=== PATIENT | male | born 1990 | race Caucasian/White ===

== ENCOUNTER 2021-06-01 12:23 | Emergency (ER) | payer SELFPAY ==
[~2021-06-01] VITALS: Ht 172.7 cm; Wt 63.0 kg
[2021-06-01] MEDS ORDERED: IOHEXOL 300 MG/ML 75 ML VIAL. ONE (13:26)
[2021-06-01] MEDS ORDERED: VANCOMYCIN PER PHARMACY MC PRN (13:30)
[2021-06-01] MEDS ORDERED: IV NORMAL SALINE 1,000ML 1,000 ML IV ONE (13:30)
[2021-06-01] MEDS ORDERED: IOHEXOL 300 MG/ML 75 ML VIAL. IV ONE (13:30)
[2021-06-01] MEDS ORDERED: PIP/TAZO PER PHARMACY MC PRN (13:30)
[2021-06-01] MEDS ORDERED: KETOROLAC 15 MG/ML VIAL. IVP ONE (13:30)
[2021-06-01 13:44] LABS: BASO # 0.3 x10^3/uL (0.0-0.2); BASO % 1 % (0-3); EOS # 0.2 x10^3/uL (0.0-0.7); EOS % 1 % (0-3); HEMATOCRIT 37.3 % (39.0-53.0); LYMPH # 1.4 x10^3/uL (1.0-4.8); LYMPH % 4 % (24-48); MEAN CORPUSCULAR HEMOGLOBIN 27 pg (25-35); MEAN CORPUSCULAR HGB CONC 32 g/dL (31-37); MEAN CORPUSCULAR VOLUME 84 fL (79-100); MONO # 2.7 x10^3/uL (0.0-1.1); MONO % 8 % (0-9); NEUT # 27.7 x10^3uL (1.8-7.7); NEUT % 86 % (31-73); PLATELET COUNT 384 x10^3/uL (140-400); RED BLOOD COUNT 4.43 x10^6/uL (4.30-5.70); RED CELL DISTRIBUTION WIDTH 14.5 % (11.5-14.5); WHITE BLOOD COUNT 32.3 x10^3/uL (4.0-11.0)
[2021-06-01] MEDS ORDERED: PIPERACILLIN/TAZOBACTAM 3.375 GM in IV NORMAL SALINE 50ML 50 ML IV ONE (13:45)
[2021-06-01 13:50] LABS: CALCIUM 8.4 mg/dL (8.5-10.1); CREATININE 0.9 mg/dL (0.7-1.3); GFR 97.8; POTASSIUM 3.9 mmol/L (3.5-5.1)
[2021-06-01 13:56] LABS: ALBUMIN/GLOBULIN RATIO 0.7 (1.0-1.7); MAGNESIUM 2.2 mg/dL (1.8-2.4); TOTAL BILIRUBIN 0.2 mg/dL (0.2-1.0); TOTAL PROTEIN 7.3 g/dL (6.4-8.2)
[2021-06-01] MEDS ORDERED: VANCOMYCIN 1.5 GM in IV NORMAL SALINE 500ML 500 ML IV ONE (14:00)
--- NOTE | 2021-06-01 14:22 | RAD ---
Examination: CT pelvis with IV contrast HISTORY: History of right gluteal swelling, redness COMPARISON: None available TECHNIQUE: Axial CT images of the pelvis were performed with IV contrast. Coronal and sagittal reform ats are performed Exposure: One or more of the following individualized dose reduction techniques were utilized for thi s examination: 1. Automated exposure control 2. Adjustment of the mA and/or kV according to patient size 3. Use of iterative reconstruction technique FINDINGS: The bowel gas pattern appears unremarkable. Calcific density measuring 8 mm in the base of the append ix identified. The visualized appendix grossly appears unremarkable. Urinary bladder is mildly disten ded There is moderate diffuse inflammatory fat stranding identified in the right perineum extending to th e medial aspect of the right buttock with soft tissue density likely soft tissue infection/cellulitis /phlegmon/developing abscess.. Few enlarged bilateral inguinal and pelvic lymph nodes with the larges t measuring 2 cm on the right. IMPRESSION: 1. Moderate diffuse inflammatory fat stranding identified in the right perineum extending to the med ial aspect of the right buttock with soft tissue density likely soft tissue infection/cellulitis with phlegmon/developing abscess. 2. Few enlarged bilateral inguinal and pelvic lymph nodes with the largest measuring 2 cm on the rig ht, likely reactive. Electronically signed by: Donny Ba MD (06/01/2021 2:20 PM) [id number]
[2021-06-01] MEDS ORDERED: IV NORMAL SALINE 50ML 50 ML ONE (14:27)
[2021-06-01] MEDS ORDERED: PIPERACILLIN/TAZOBACTAM 3.375 GM VIAL IV ONE (14:27)
[2021-06-01 14:54] LABS: % BANDS 7 % (0-9); % LYMPHS 6 % (24-48); % MONOS 7 % (0-10); % SEGS 80 % (35-66); PLT ESTIMATE ADEQUATE (ADEQUATE)
[2021-06-01 14:55] LABS: HYPOCHROMIA SLIGHT; SMUDGE CELLS PRESENT
--- NOTE | 2021-06-01 15:00 | PHYS DOC ---
Past History Past Medical History: No Pertinent History Past Surgical History: No Surgical History Smoking: Cigarettes (20 pack year history) Alcohol Use: Occasionally Drug Use: None General Adult EDM: Chief Complaint: FEVER HPI: HPI: Mr. Reed is a 30 yo male who presents to the ED for right buttock swelling and tenderness that started 2 days ago. Patient states initially he noticed a "bulge" in the right buttock region which over the next two days migrated toward the scrotal region and became more painful as the days passed. He characterizes the pain as dull, pulsating in nature and currently rates it a 9/10 in the tenderness scale. He states laying flat and removing pressure from the area improves the pain but movement and sitting worsen it. In addition to aforementioned symptoms patient has been endorsing fever and chills and one episode of hematuria. Currently he is not sexually active and has not experienced trauma in the affected region. Patient also reports last tetanus booster greater than 5 years ago. Review of Systems: Review of Systems: Constitutional: Endorsing fever and chills Eyes: Denies redness or eye pain HENT: Denies nasal congestion or sore throat Respiratory: Denies cough but is endorsing shortness of breath with inspiration Cardiovascular: Denies chest pain or palpitations GI: Denies abdominal pain, nausea, or vomiting : Denies dysuria, endorsed an episode of hematuria Musculoskeletal: Denies back pain or joint pain Integument: Denies rash, endorsing skin lesions the right buttock region Neurologic: Denies headache, focal weakness or sensory changes Complete systems were reviewed and found to be within normal limits, except as d ocumented in this note. Current Medications: Current Meds: Current Medications Medications (Trade) Dose Ordered Sig/Scooter Start Time Stop Time Status Last Admin Dose Admin Iohexol (Omnipaque 300 Mg/ml) 75 ml STK-MED ONCE 06/01/21 13:26 06/01/21 13:27 DC Ketorolac Tromethamine (Toradol 15mg Vial) 15 mg 1X ONCE 06/01/21 13:30 06/01/21 13:31 DC Piperacillin Sod/ Tazobactam Sod (Zosyn Per Pharmacy) 1 each PRN DAILY PRN 06/01/21 13:30 Piperacillin Sod/ Tazobactam Sod (Zosyn) 3.375 gm STK-MED ONCE 06/01/21 14:27 06/01/21 14:27 DC Piperacillin Sod/ Tazobactam Sod 3.375 gm/Sodium Chloride 50 ml @ 100 mls/hr 1X ONCE 06/01/21 13:45 06/01/21 14:14 DC Sodium Chloride 50 ml @ As Directed STK-MED ONCE 06/01/21 14:27 06/01/21 14:27 DC Vancomycin HCl (Vanco Per Pharmacy) 1 each PRN DAILY PRN 06/01/21 13:30 Vancomycin HCl 1.5 gm/Sodium Chloride 500 ml @ 250 mls/hr 1X ONCE 06/01/21 14:00 06/01/21 15:59 Allergies: Allergies: Allergies Coded Allergies Type Severity Reaction Last Updated Verified No Known Drug Allergies 06/01/21 No Physical Exam: PE: Constitutional: Well developed, well nourished, uncomfortable, non toxic appearing HENT: Normocephalic, atraumatic Eyes: Conjunctiva normal, no discharge Neck: Normal range of motion, no tenderness, supple Lungs & Thorax: No respiratory distress, equal chest rise and fall, clear bilaterally to auscultation, no wheezing/rales/rhonchi Abdomen: Soft, no tenderness Skin: Warm, dry, erythema present in the Right medial buttock region extending to perineal region, no scrotal involvement, tenderness present in the perineal region Back: No tenderness, no CVA tenderness Extremities: No tenderness, ROM intact, no edema Neurologic: Alert and oriented X 3, no focal deficits noted Psychologic: Affect normal, judgment normal Current Patient Data: Labs: Laboratory Tests Test 06/01/21 13:22 White Blood Count 32.3 x10^3/uL (4.0-11.0) H Red Blood Count 4.43 x10^6/uL (4.30-5.70) Hemoglobin 12.0 g/dL (13.0-17.5) L Hematocrit 37.3 % (39.0-53.0) L Mean Corpuscular Volume 84 fL (79-100) Mean Corpuscular Hemoglobin 27 pg (25-35) Mean Corpuscular Hemoglobin Concent 32 g/dL (31-37) Red Cell Distribution Width 14.5 % (11.5-14.5) Platelet Count 384 x10^3/uL (140-400) Neutrophils (%) (Auto) 86 % (31-73) H Lymphocytes (%) (Auto) 4 % (24-48) L Monocytes (%) (Auto) 8 % (0-9) Eosinophils (%) (Auto) 1 % (0-3) Basophils (%) (Auto) 1 % (0-3) Neutrophils # (Auto) 27.7 x10^3uL (1.8-7.7) H Lymphocytes # (Auto) 1.4 x10^3/uL (1.0-4.8) Monocytes # (Auto) 2.7 x10^3/uL (0.0-1.1) H Eosinophils # (Auto) 0.2 x10^3/uL (0.0-0.7) Basophils # (Auto) 0.3 x10^3/uL (0.0-0.2) H Platelet Estimate Pending Sodium Level 137 mmol/L (136-145) Potassium Level 3.9 mmol/L (3.5-5.1) Chloride Level 99 mmol/L (98-107) Carbon Dioxide Level 30 mmol/L (21-32) Anion Gap 8 (6-14) Blood Urea Nitrogen 12 mg/dL (8-26) Creatinine 0.9 mg/dL (0.7-1.3) Estimated GFR (Cockcroft-Gault) 97.8 BUN/Creatinine Ratio 13 (6-20) Glucose Level 104 mg/dL (70-99) H Lactic Acid Level 1.5 mmol/L (0.4-2.0) Calcium Level 8.4 mg/dL (8.5-10.1) L Magnesium Level 2.2 mg/dL (1.8-2.4) Total Bilirubin 0.2 mg/dL (0.2-1.0) Aspartate Amino Transferase (AST) 18 U/L (15-37) Alanine Aminotransferase (ALT) 26 U/L (16-63) Alkaline Phosphatase 142 U/L (46-116) H Total Protein 7.3 g/dL (6.4-8.2) Albumin 3.0 g/dL (3.4-5.0) L Albumin/Globulin Ratio 0.7 (1.0-1.7) L Vital Signs: Vital Signs Date Time Temp Pulse Resp B/P (MAP) Pulse Ox O2 Delivery O2 Flow Rate FiO2 06/01/21 13:12 98.7 18 117/78 (91) 99 Room Air EKG: EKG: [] Radiology/Procedures: Radiology/Procedures: PROCEDURE: CT PELVIS W/CONTRAST Examination: CT pelvis with IV contrast HISTORY: History of right gluteal swelling, redness COMPARISON: None available TECHNIQUE: Axial CT images of the pelvis were performed with IV contrast. Coronal and sagittal reformats are performed Exposure: One or more of the following individualized dose reduction techniques were utilized for this examination: 1. Automated exposure control 2. Adjustment of the mA and/or kV according to patient size 3. Use of iterative reconstruction technique FINDINGS: The bowel gas pattern appears unremarkable. Calcific density measuring 8 mm in the base of the appendix identified. The visualized appendix grossly appears unremarkable. Urinary bladder is mildly distended There is moderate diffuse inflammatory fat stranding identified in the right perineum extending to the medial aspect of the right buttock with soft tissue density likely soft tissue infection/cellulitis/phlegmon/developing abscess.. Few enlarged bilateral inguinal and pelvic lymph nodes with the largest measuring 2 cm on the right. IMPRESSION: 1. Moderate diffuse inflammatory fat stranding identified in the right perineum extending to the medial aspect of the right buttock with soft tissue density likely soft tissue infection/cellulitis with phlegmon/developing abscess. 2. Few enlarged bilateral inguinal and pelvic lymph nodes with the largest measuring 2 cm on the right, likely reactive. Electronically signed by: Donny Ba MD (06/01/2021 2:20 PM) [id number] Heart Score: C/O Chest Pain: N/A Course & Med Decision Making: Course & Med Decision Making Pertinent Labs and Imaging studies reviewed. (See chart for details) Mr. Reed is a 30 yo male who presents to the ED for right buttock swelling and tenderness that started 2 days ago. Upon further evaluation, the patient was experiencing a perineal region cellulitis with concern for medial distribution. In the ED patient a CBC, CMP and CT of the pelvic region was ordered. CBC and CMP were positive for leukocytocis WBC 32.3, Hgb [address] pelvis showed moderate diffuse inflammatory fat stranding identified in the right perineum extending to the medial aspect of the right buttock with soft tissue density likely soft tissue infection/cellulitis with phlegmon/developing abscess. No drainable abscess noted at this time. No signs of subcutaneous gas concerning for Franky's gangrene. Ultimately patient was started on IV fluids, empiric antibiotics (vanc and zosyn) and will require admission for further evaluation and treatment. Patient requiring admission for further evaluation and treatment. Discussed with Dr. Mercado (hospitalist) who recommends patient be transferred to higher level facility that has surgery consultation. Discussed case with Dr. Rivas (hospitalist) who is in agreement with transfer for admission to [facility] acute hospital. Discussed findings and plan with patient, who acknowledges understanding and agreement. Dragon Disclaimer: Dragon Disclaimer: This electronic medical record was generated, in whole or in part, using a voice recognition dictation system. Departure Departure: Impression: Primary Impression: Cellulitis, gluteal, right Additional Impression: Leukocytosis Qualified Codes: D72.829 - Elevated white blood cell count, unspecified Disposition: 02 [facility] ([facility]- Dr. Rivas accepting) Condition: STABLE Referrals: PCP,SANTOS (PCP) ZANA VANEGAS DO Jun 01, 2021 15:00
[2021-06-01 15:12] LABS: BACTERIA,URINE 0 /HPF (0-FEW); BILIRUBIN,URINE NEG (NEG); CLARITY,URINE CLEAR; COLOR,URINE YELLOW; GLUCOSE,URINE NEG (NEG); NITRITE,URINE NEG (NEG); WBC,URINE 0 /HPF (0-4)
[2021-06-01 16:02] VITALS: BP 111/77
[2021-06-01 16:05] LABS: INFLUENZA A PATIENT NEGATIVE (NEGATIVE); INFLUENZA B PATIENT NEGATIVE (NEGATIVE)
[2021-06-01] MEDS ORDERED: DIPHTH,PERTUSS(ACELL),TET TOX 0.5 ML DISP.SYRIN. VAX IM ONE (16:15)
== END 2021-06-01 17:00 | disposition short-term general hospital (02) ==
LOC: ER 12:23
DX: L03.317 Cellulitis of buttock (principal); D72.829 Elevated white blood cell count, unspecified; F17.210 Nicotine dependence, cigarettes, uncomplicated; Z20.822 Contact with and (suspected) exposure to COVID-19
CPT/HCPCS: 36415; 72193; 80053; 81001; 83605; 83735; 85007; 85025; 87040; 87428; 90471; 90715; 96365; 96366; 96368; 96375; 99285; C9803; J1885; J2543; J3370; J7030; J7040; Q9967; U0003